=== PATIENT | female | born 1995 | race Caucasian/White ===

== ENCOUNTER 2021-05-30 17:36 | Outpatient (CLI) | payer OTHER, SELFPAY ==
--- NOTE | ~2021-05-30 | XR_ITS ---
EXAMINATION: XR abdomen/kub 1V DATE: 05/30/2021 17:56 INDICATION: Right flank pain. TECHNIQUE: A supine view of the abdomen on 2 radiographs was obtained. COMPARISON: CT abdomen and pelvis 08/05/2016 FINDINGS: There are no dilated loops of bowel. There is no visible urolithiasis. IMPRESSION: 1. No visible urolithiasis. Reviewed, dictated and finalized at location A. IMPRESSION: 1. No visible urolithiasis.
== END 2021-05-30 17:37 | disposition home or self-care (01) ==
LOC: ANHIMG 17:41
PROVIDERS: PCP Nurse Practitioner Adult Health; Visit Provider Nurse Practitioner Adult Health
DX: R10.9 Unspecified abdominal pain (principal)
CPT/HCPCS: 74018

== ENCOUNTER 2021-06-25 07:58 | Outpatient (CLI) | payer OTHER, SELFPAY ==
--- NOTE | ~2021-06-25 | US_ITS ---
EXAMINATION: US pelvic complete EXAM DATE: 06/25/2021 08:14 INDICATION: Ovarian cyst identified on CT scan in [place]. TECHNIQUE: Pelvic transabdominal sonogram was performed. There are multiple grayscale and Doppler i mages available for interpretation. Comparison is made to prior examination from 07/30/2017. FINDINGS: Uterus measures 3.0 x 3.7 x 4.7 cm, and is morphologically normal. Endometrial stripe pawan sures 6 mm, within normal limits. There is no free pelvic fluid. Right adnexa: The ovary measures 2.1 x 1.4 x 2.3 cm and is morphologically normal. Ovarian vascular f low confirmed. Left adnexa: The ovary measures 1.9 x 1.0 x 2.2 cm and is morphologically normal. Ovarian vascular fl ow confirmed. IMPRESSION: 1. Unremarkable pelvic ultrasound exam. Reviewed, dictated and finalized at location A.
== END 2021-06-25 07:59 ==
PROVIDERS: Visit Provider Obstetrics & Gynecology Gynecology
DX: N83.201 Unspecified ovarian cyst, right side (principal)
CPT/HCPCS: 76856

== ENCOUNTER 2021-07-19 17:18 | Emergency (ER) | payer OTHER, SELFPAY ==
--- NOTE | ~2021-07-19 | XR_ITS ---
EXAMINATION: XR forearm LT 2V INDICATION: Left forearm pain TECHNIQUE: Two views of the left forearm are obtained. COMPARISON: None available FINDINGS: There is dorsal soft tissue swelling of the proximal forearm. No underlying osseous abnorma lity is identified. Bone alignment is normal. There is no fracture. IMPRESSION: 1. Soft tissue swelling without acute osseous abnormality. Reviewed, dictated and finalized at location A.
[2021-07-19 17:25] VITALS: BP 138/90; PULSE 111; RESP 18; TEMP 37; O2SAT 100
--- NOTE | 2021-07-19 18:11 | ED.EXTPRO ---
HPI - Extremity Problem General Chief complaint: Extremity Problem,Nontraumatic Stated complaint: Lt Forearm Swelling Time Seen by Provider: 07/19/21 17:35 Source: patient, RN notes reviewed and old records reviewed Mode of arrival: ambulatory Limitations: no limitations History of Present Illness HPI Narrative: 25 year old female who presents to [facility] with complaint of one week duration of small bump to ulnar side of left proximal forearm. Patient states that she awoke this morning with area on left forearm more swollen and more painful. Patient denies any known injury to area, has not taken any OTC medications for discomfort or applied any ice to area. 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 Patient is presently taking oral antibiotic for UTI which was started on the 14 of July. MD Complaint: extremity pain and extremity swelling Related Data Home Medications Medication Instructions Recorded Confirmed alprazolam 07/19/21 drospirenone-ethinyl estradiol 1 tablet PO BID 07/19/21 07/19/21 sulfamethoxazole-trimethoprim 1 tablet PO BID 07/19/21 07/19/21 Allergies Allergy/AdvReac Type Severity Reaction Status Date / Time AMOXICILLIN TRIHYDRATE Allergy Unknown Uncoded 08/28/16 07:33 POTASSIUM CLAVULANATE Allergy Unknown Uncoded 08/28/16 07:33 Review of Systems Review of Systems: CONSTITUTIONAL: Denies fever, chills, or sweats. EYES: Denies visual changes, redness, or discharge. ENT: Denies rhinorrhea, congestion, sore throat, or otalgia. CARDIOVASCULAR: Denies chest pain, palpitations, or edema. RESPIRATORY: Denies cough or dyspnea. GASTROINTESTINAL: Denies abdominal pain, nausea, vomiting, or diarrhea. GENITOURINARY: Denies dysuria or hematuria, presently on antibiotic for UTI with symptoms resolving SKIN: Denies rash or itching. MUSCULOSKELETAL: Denies back pain,positive for left proximal forearm pain with full ROM of elbow with no known injury, or myalgia. NEUROLOGIC: Denies headache, numbness, or weakness. PSYCHIATRIC: Positive history of anxiety or depression. All systems reviewed & are unremarkable except as noted in HPI and below PMFSH Past Medical History Medical History (Updated 07/19/21 @ 18:33 by Shari Muñoz NP) Anxiety Surgical History Surgical History (Updated 07/19/21 @ 19:01 by Shari Muñoz NP) History of removal of ovarian cyst dermoid cyst right ovary [place] teeth extracted Family History Family History (Updated 07/19/21 @ 18:39 by Shari Muñoz NP) Grandparent Heart disease Father Kidney stones Social History Social History (Updated 07/19/21 @ 18:39 by Shari Muñoz NP) Smoking status: Never smoker Alcohol intake: current Alcohol use details: rare social Substance use: never Gender identity (if verbalized by the patient): Female Comments At time of signature, agree with nursing past medical, surgical, social and family history. There is no relevant family history pertinent to the presenting complaint Exam Narrative: GENERAL: Well-appearing, well-nourished, and in no acute distress. HEAD: Normocephalic, atraumatic. EYES: PERRLA and EOMI. ENT: Nares clear, no rhinorrhea or epistaxis. Mucous membranes moist. TM 's normal, throat pink,no lesions or exudates or tonsil swelling. NECK: Supple. no lymphadenopathy CHEST: Clear to auscultation. No respiratory distress. Sao2 100% on room air. HEART: Regular rate and rhythm. No murmur heard. Normal peripheral pulses. ABDOMEN: Soft, nontender, nondistended, normal active bowel sounds. EXTREMITIES: Normal range of motion. palpable swelling to ulnar side of proximal left forearm with no injury reported to left forearm. Palpable pain to area with point of tenderness ulnar aspect of proximal forearm.Sensation and circulation intact to left arm and hand. SKIN: Warm, dry, no rash. NEURO: No focal deficits. Alert and oriented x3. Course Vital Si
== END 2021-07-19 18:40 | disposition home or self-care (01) ==
PROVIDERS: Emergency Provider Registered Nurse
DX: M79.632 Pain in left forearm (principal); F41.9 Anxiety disorder, unspecified
CPT/HCPCS: 73090; 99213; G0463